=== PATIENT | female | born 1970 | race Caucasian/White ===

== ENCOUNTER 2016-08-18 11:10 | Emergency (ER) | payer MEDICARE ==
[~2016-08-18] VITALS: Ht 162.6 cm; Wt 61.2 kg
[2016-08-18 11:35] VITALS: BP 114/80
--- NOTE | 2016-08-18 12:16 | NUR ---
PT HERE FOR DYSURIA X 1 WEEK, WORSENING IN THE LAST 3 DAYS WITH FEVERS/CHILLS. DENIES ANY ABD PAIN, N,V,D.
--- NOTE | 2016-08-18 12:29 | NUR ---
DR REYNOSO IN ROOM FOR EXAM
--- NOTE | 2016-08-18 13:19 | NUR ---
Patient discharged with v/s stable. Written and verbal after care instructions given and explained. Patient alert, oriented and verbalized understanding of instructions. Ambulatory with steady gait. All questions addressed prior to discharge. ID band removed. Patient advised to follow up with PMD. Rx of PYRIDIUM, BACTRIM given. Patient educated on indication of medication including possible reaction and side effects. Opportunity to ask questions provided and answered.
[2016-08-18 13:20] VITALS: BP 103/82
== END 2016-08-18 13:19 | disposition home or self-care (01) ==
LOC: MED 11:10
DX: N39.0 Urinary tract infection, site not specified (principal); Z90.721 Acquired absence of ovaries, unilateral